=== PATIENT | female | born 1990 | race Caucasian/White ===

== ENCOUNTER 2019-11-12 00:58 | Inpatient (IN) ==
[2019-11-12] MEDS ORDERED: MEPERIDINE 50 MG/1 ML VIAL IM PRN (02:02)
[2019-11-12] MEDS ORDERED: BUTORPHANOL 2 MG/ML VIAL IV PRN (02:02)
[2019-11-12] MEDS ORDERED: BUTORPHANOL 1 MG/ML VIAL IV PRN (02:02)
[2019-11-12 02:31] LABS: Basophils % 0.2 % (0.0-0.8); Eosinophils # 0.1 10*3/uL (0.0-0.87); Eosinophils % 0.8 % (0.00-10.9); Hematocrit 33.7 VOL% (35.7-47.0); Hemoglobin 11.2 GM/DL (12.0-16.0); Immature Granulocytes % 0.4 %; Immature Granulocytes Absolute 0.05 #; Lymphocytes # 2.2 10*3/uL (1.4-4.0); Mean Corpuscular HGB Conc 33.2 GM/DL (32-36); Mean Corpuscular Volume 87.1 FL (87-102); Mean Platelet Volume 10.6 FL (9.6-12.0); Monocytes % 4.9 % (1.7-12.7); Neutrophils % 75.7 % (38.7-73.9); Platelet Count 294 T/CUMM (130-400); Red Blood Count 3.87 MC/CUMM (3.8-5.5); Red Cell Distribution Width 13.8 % (9.3-17.3)
[2019-11-12] MEDS: LACTATED RINGERS 1,000 ML IV SCH ×3 (02:41→14:51)
[2019-11-12] MEDS ORDERED: AMPICILLIN INJ 2,000 MG in SODIUM CHLORIDE 0.9% 100 ML IV ONE (03:00)
[2019-11-12] MEDS: ONDANSETRON 4 MG/2 ML VIAL IV PRN ×2 (03:22→10:39)
[2019-11-12] MEDS ORDERED: OXYTOCIN/LR 20 UNIT/1,000 ML BAG IV SCH (07:30)
[2019-11-12] MEDS ORDERED: CITRIC ACID/SODIUM CITRATE 30 ML UDCUP PO ONE (07:41)
[2019-11-12] MEDS ORDERED: FAMOTIDINE 20 MG/2 ML VIAL IV ONE (07:41)
[2019-11-12] MEDS ORDERED: hydrOXYzine HCL 25 MG/1 ML VIAL IM PRN (07:41)
[2019-11-12] MEDS ORDERED: PROMETHAZINE 25 MG/1 ML VIAL IM PRN (07:41)
[2019-11-12] MEDS ORDERED: diphenhydrAMINE 50 MG/1 ML VIAL IV PRN (07:41)
[2019-11-12] MEDS ORDERED: ePHEDrine 50 MG/ML VIAL IV PRN (07:41)
[2019-11-12] MEDS ORDERED: NALOXONE 0.4 MG/ML VIAL IV PRN (07:41)
[2019-11-12] MEDS: AMPICILLIN INJ 1,000 MG in SODIUM CHLORIDE 0.9% 100 ML IV SCH ×3 (07:51→15:13)
[2019-11-12] MEDS ORDERED: fentaNYL 2 MCG/ROPIV 0.2% EPID 100 ML EPIDURAL SCH (08:00)
[2019-11-12] MEDS ORDERED: LABETALOL 200 MG TABLET ONE (09:07)
[2019-11-12] MEDS: LABETALOL 200 MG TABLET PO SCH ×2 (09:11→16:57)
[2019-11-12 10:35] LABS: Apearance,Urine CLEAR (Clear); Bilirubin,Urine Negative (Negative); Blood, Urine Negative (Negative); Glucose,Urine (UA) Negative (Negative); Ketones,Urine 5 mg/dL (Negative); Mucus,Urine Occasional /LPF (Occasional); Nitrite,Urine Negative (Negative); Protein,Urine Negative; RBC,Urine 2 /HPF (0-4); Squamous Epithelial Cell,Urine Occasional /HPF (0-10); Urine Color Yellow (Yellow); Urine Specific Gravity 1.017 (1.001-1.035); Urine Urobilinogen < 2.0 EU/DL (0.2-1.0); WBC,Urine <1 /HPF (0-6)
[2019-11-12] MEDS ORDERED: TRANEXAMIC ACID 1,000 MG/10 ML VIAL ONE (15:29)
[2019-11-12] MEDS ORDERED: METHYLERGONOVINE 0.2 MG/1 ML AMP ONE (15:29)
[2019-11-12] MEDS ORDERED: miSOPROStoL 200 MCG TABLET ONE (15:29)
[2019-11-12] MEDS ORDERED: OXYTOCIN/LR 20 UNIT/1,000 ML BAG IV ONE ×2 (15:29→20:24)
[2019-11-12] MEDS ORDERED: CARBOPROST TROMETHAMINE 250 MCG/ML AMP IM ONE (15:30)
[2019-11-12] MEDS ORDERED: LIDOCAINE 1% 50 ML VIAL ONE (17:52)
[2019-11-12] MEDS ORDERED: ceFAZolin 2,000 MG in PREMIX 1 EACH IV ONE (18:42)
[2019-11-12] MEDS ORDERED: LIDOCAINE MPF 2% /EPI 20 ML VIAL ONE (18:48)
[2019-11-12 19:27] LABS: Cord Arterial Blood HCO3 23.5 MMOL/L; Cord Venous Blood HCO3 22.5 MMOL/L; Cord Venous Blood PCO2 44.5 MMHG; Cord Venous Blood PO2 29.9
[2019-11-12] MEDS ORDERED: OXYTOCIN 10 UNIT/ML VIAL ONE (19:32)
[2019-11-12] MEDS ORDERED: MEASLES/MUMPS/RUBELLA VACCINE 0.5 ML VIAL SUBCUT ONE (20:24)
[2019-11-12] MEDS ORDERED: RHO(D) IMMUNE GLOBULIN 300 MCG SYRINGE IM ONE (20:24)
[2019-11-12] MEDS ORDERED: BISACODYL 10 MG SUPP RECTAL PRN (20:24)
[2019-11-12] MEDS ORDERED: BENZOCAINE 20%/MENTHOL 0.5% SPRAY 56 GM CAN TOP PRN (20:24)
[2019-11-12] MEDS ORDERED: WITCH HAZEL PADS 100/JAR TOP PRN (20:24)
[2019-11-12] MEDS ORDERED: ACETAMINOPHEN 325 MG TABLET PO PRN (20:24)
[2019-11-12] MEDS ORDERED: HYDROCORTISONE 2.5% RECTAL CREAM 30 GM TUBE TOP PRN (20:24)
[2019-11-12] MEDS ORDERED: DIPH/TET/ACEL PERT BOOSTER VACCINE 0.5 ML VIAL IM ONE (20:24)
[2019-11-12] MEDS ORDERED: ONDANSETRON 4 MG/2 ML VIAL IV PRN (20:24)
[2019-11-12] MEDS ORDERED: oxyCODONE/ACETAMINOPHEN 5-325 MG TABLET PO PRN (20:24)
[2019-11-12] MEDS ORDERED: LANOLIN 50% CREAM 0.3 OZ TUBE TOP PRN (20:24)
[2019-11-12] MEDS ORDERED: PHENYLEPHRINE 1 MG/10 ML SYRINGE IV ONE (20:33)
[2019-11-12] MEDS ORDERED: MIDAZOLAM 2 MG/2 ML VIAL ONE (20:34)
[2019-11-12] MEDS ORDERED: propofoL 200 MG/20 ML VIAL IV ONE (20:34)
[2019-11-12] MEDS ORDERED: LIDOCAINE 2% 5 ML VIAL ONE (20:34)
[2019-11-12] MEDS ORDERED: MORPHINE 10 MG/10 ML VIAL ONE (20:34)
[2019-11-12] MEDS ORDERED: HYDROmorphone 2 MG/1 ML VIAL IV ONE ×2 (22:55)
[2019-11-12] MEDS: ACETAMINOPHEN 500 MG TABLET PO PRN (23:35)
[2019-11-12] MEDS: KETOROLAC 30 MG/1 ML VIAL IV SCH (23:35)
[2019-11-13] MEDS: LABETALOL 200 MG TABLET PO SCH ×3 (00:36→19:05)
[2019-11-13] MEDS: ceFAZolin 1,000 MG in SYRINGE 1 EACH IV SCH ×2 (04:00→11:30)
[2019-11-13] MEDS: ACETAMINOPHEN 500 MG TABLET PO PRN (05:29)
[2019-11-13] MEDS: KETOROLAC 30 MG/1 ML VIAL IV SCH ×2 (05:29→11:20)
[2019-11-13 06:35] LABS: Basophils % 0.3 % (0.0-0.8); Eosinophils # 0.1 10*3/uL (0.0-0.87); Eosinophils % 0.4 % (0.00-10.9); Hematocrit 26.1 VOL% (35.7-47.0); Immature Granulocytes % 0.5 %; Immature Granulocytes Absolute 0.08 #; Lymphocytes # 2.8 10*3/uL (1.4-4.0); Lymphocytes % 17.7 % (21.3-54.2); Mean Corpuscular HGB Conc 32.6 GM/DL (32-36); Mean Corpuscular Volume 90.3 FL (87-102); Mean Platelet Volume 11.1 FL (9.6-12.0); Monocytes % 5.3 % (1.7-12.7); Neutrophils % 75.8 % (38.7-73.9); Platelet Count 268 T/CUMM (130-400); Red Cell Distribution Width 14.3 % (9.3-17.3); White Blood Count 15.6 T/CUMM (4-12)
[2019-11-13 06:38] LABS: Hemoglobin 8.5 GM/DL (12.0-16.0); Red Blood Count 2.89 MC/CUMM (3.8-5.5)
[2019-11-13] MEDS: FLUoxetine 20 MG CAPSULE PO SCH (08:55)
[2019-11-13] MEDS: DOCUSATE SODIUM 100 MG CAPSULE PO SCH ×2 (08:55→20:52)
[2019-11-13] MEDS: IBUPROFEN 800 MG TABLET PO PRN (19:01)
[2019-11-13] MEDS: oxyCODONE/ACETAMINOPHEN 5-325 MG TABLET PO PRN (23:38)
[2019-11-14] MEDS: LABETALOL 200 MG TABLET PO SCH ×3 (03:00→17:27)
[2019-11-14] MEDS: IBUPROFEN 800 MG TABLET PO PRN ×3 (06:16→17:31)
[2019-11-14] MEDS: oxyCODONE/ACETAMINOPHEN 5-325 MG TABLET PO PRN (06:16)
[2019-11-14] MEDS: FLUoxetine 20 MG CAPSULE PO SCH (10:15)
[2019-11-14] MEDS: DOCUSATE SODIUM 100 MG CAPSULE PO SCH ×2 (10:15→21:14)
[2019-11-14] MEDS: MAGNESIUM HYDROXIDE SUSP 30 ML UDCUP PO PRN (12:45)
[2019-11-15] MEDS: oxyCODONE/ACETAMINOPHEN 5-325 MG TABLET PO PRN (00:01)
[2019-11-15] MEDS: LABETALOL 200 MG TABLET PO SCH (01:55)
[2019-11-15] MEDS: MAGNESIUM HYDROXIDE SUSP 30 ML UDCUP PO PRN (01:55)
[2019-11-15] MEDS ORDERED: FUROSEMIDE 40 MG TABLET PO ONE (08:11)
[2019-11-15] MEDS: DOCUSATE SODIUM 100 MG CAPSULE PO SCH (08:35)
[2019-11-15] MEDS: FLUoxetine 20 MG CAPSULE PO SCH (08:36)
[2019-11-15 10:03] VITALS: BP 105/68
== END 2019-11-15 11:50 | disposition home or self-care (01) | DRG 788 ==
LOC: N.LDOUT 00:58 → N.LD 01:01 → N.OB 11-13 01:10
PROVIDERS: ADMIT Specialist; ATTEND Specialist
PROC: LDCSECT (ICD-10-PCS; 2019-11-12 18:30)

== ENCOUNTER 2022-05-03 23:03 | Inpatient (IN) ==
[2022-05-04] MEDS ORDERED: METHYLERGONOVINE 0.2 MG/1 ML AMP IM PRN ×2 (00:15→06:05)
[2022-05-04] MEDS ORDERED: LACTATED RINGERS 500 ML IV PRN (00:15)
[2022-05-04] MEDS ORDERED: ONDANSETRON 4 MG/2 ML VIAL IV PRN ×2 (00:15→11:59)
[2022-05-04] MEDS ORDERED: miSOPROStoL 200 MCG TABLET RECTAL PRN ×2 (00:15→06:05)
[2022-05-04] MEDS ORDERED: LACTATED RINGERS 250 ML IV ONE (00:15)
[2022-05-04] MEDS ORDERED: TRANEXAMIC ACID 1,000 MG in SODIUM CHLORIDE 0.9% 100 ML IV PRN ×2 (00:15→06:05)
[2022-05-04] MEDS ORDERED: OXYTOCIN/LR 20 UNIT/1,000 ML BAG IV ONE ×5 (00:15→11:59)
[2022-05-04] MEDS ORDERED: CARBOPROST TROMETHAMINE 250 MCG/ML AMP IM PRN ×2 (00:15→06:05)
[2022-05-04] MEDS ORDERED: LACTATED RINGERS 1,000 ML IV SCH ×2 (00:30→06:30)
[2022-05-04 01:18] LABS: Basophils % 0.2 % (0.0-0.8); Eosinophils # 0.1 10*3/uL (0.0-0.87); Hematocrit 33.7 VOL% (35.7-47.0); Hemoglobin 11.1 GM/DL (12.0-16.0); Immature Granulocytes % 0.3 %; Immature Granulocytes Absolute 0.04 #; Lymphocytes # 2.5 10*3/uL (1.4-4.0); Lymphocytes % 19.9 % (21.3-54.2); Mean Corpuscular HGB Conc 32.9 GM/DL (32-36); Mean Corpuscular Volume 87.8 FL (87-102); Mean Platelet Volume 10.3 FL (9.6-12.0); Monocytes # 0.7 10*3/uL (0.11-0.8); Monocytes % 5.5 % (1.7-12.7); Neutrophils % 73.1 % (38.7-73.9); Platelet Count 312 T/CUMM (130-400); Red Blood Count 3.84 MC/CUMM (3.8-5.5); Red Cell Distribution Width 13.4 % (9.3-17.3); White Blood Count 12.5 T/CUMM (4-12)
[2022-05-04] MEDS: LABETALOL 200 MG TABLET PO SCH (02:17)
[2022-05-04] MEDS ORDERED: MEPERIDINE 25 MG/1 ML VIAL IV ONE (02:30)
[2022-05-04] MEDS ORDERED: ceFAZolin 2,000 MG/50 ML DUPLEX IV ONE (06:05)
[2022-05-04] MEDS ORDERED: CITRIC ACID/SODIUM CITRATE 30 ML UDCUP PO ONE (06:05)
[2022-05-04] MEDS ORDERED: FAMOTIDINE 20 MG/2 ML VIAL IV ONE (06:05)
[2022-05-04] MEDS ORDERED: TRANEXAMIC ACID 1,000 MG/10 ML VIAL ONE (06:37)
[2022-05-04] MEDS ORDERED: miSOPROStoL 200 MCG TABLET ONE (06:37)
[2022-05-04] MEDS ORDERED: CARBOPROST TROMETHAMINE 250 MCG/ML AMP IM ONE (06:38)
[2022-05-04] MEDS ORDERED: METHYLERGONOVINE 0.2 MG/1 ML AMP ONE (06:38)
[2022-05-04] MEDS ORDERED: SODIUM CHLORIDE 0.9% 0 ML IV ONE (06:38)
[2022-05-04] MEDS ORDERED: ONDANSETRON 4 MG/2 ML VIAL ONE (06:56)
[2022-05-04] MEDS ORDERED: buprenorphine HCL 0.3 MG/ML VIAL ONE (06:56)
[2022-05-04] MEDS ORDERED: PHENYLEPHRINE 1 MG/10 ML SYRINGE IV ONE ×2 (07:30→08:30)
[2022-05-04] MEDS ORDERED: MIDAZOLAM 2 MG/2 ML VIAL ONE (07:47)
[2022-05-04 08:01] LABS: Cord Arterial Blood HCO3 22.4 MMOL/L
[2022-05-04] MEDS ORDERED: KETOROLAC 30 MG/1 ML VIAL ONE (08:01)
[2022-05-04] MEDS ORDERED: DEXAMETHASONE 4 MG/1 ML VIAL ONE (08:01)
[2022-05-04] MEDS ORDERED: ACETAMINOPHEN INJ 1,000 MG/100 ML VIAL IV ONE (08:01)
[2022-05-04 08:04] LABS: Cord Venous Blood HCO3 23.7 MMOL/L; Cord Venous Blood PCO2 49.8 MMHG
[2022-05-04] MEDS ORDERED: LACTATED RINGERS 1,000 ML IV ONE (08:10)
[2022-05-04] MEDS ORDERED: BENZOCAINE 20%/MENTHOL 0.5% SPRAY 56 GM CAN TOP PRN (11:59)
[2022-05-04] MEDS ORDERED: LANOLIN 50% CREAM 0.3 OZ TUBE TOP PRN (11:59)
[2022-05-04] MEDS ORDERED: WITCH HAZEL PADS 100/JAR TOP PRN (11:59)
[2022-05-04] MEDS ORDERED: BISACODYL 10 MG SUPP RECTAL PRN (11:59)
[2022-05-04] MEDS ORDERED: ACETAMINOPHEN 325 MG TABLET PO PRN (11:59)
[2022-05-04] MEDS ORDERED: HYDROCORTISONE 2.5% RECTAL CREAM 30 GM TUBE TOP PRN (11:59)
[2022-05-04] MEDS ORDERED: oxyCODONE/ACETAMINOPHEN 5-325 MG TABLET PO PRN (11:59)
[2022-05-04] MEDS ORDERED: RHO(D) IMMUNE GLOBULIN 300 MCG SYRINGE IM ONE (11:59)
[2022-05-04] MEDS ORDERED: DIPH/TET/ACEL PERT BOOSTER VACCINE 0.5 ML VIAL IM ONE (11:59)
[2022-05-04] MEDS ORDERED: MEASLES/MUMPS/RUBELLA VACCINE 0.5 ML VIAL SUBCUT ONE (11:59)
[2022-05-04] MEDS: ACETAMINOPHEN 500 MG TABLET PO SCH ×2 (13:56→20:31)
[2022-05-04] MEDS: KETOROLAC 30 MG/1 ML VIAL IV SCH ×2 (13:57→20:29)
[2022-05-04] MEDS: DOCUSATE SODIUM 100 MG CAPSULE PO SCH (20:31)
[2022-05-04 20:50] LABS: Bacteria,Urine Occasional /HPF (Few); Mucus,Urine Occasional /LPF (Occasional); RBC,Urine 4 /HPF (0-4)
[2022-05-04 20:53] LABS: Bilirubin,Urine Negative (Negative); Blood, Urine Trace mg/dL (Negative); Glucose,Urine (UA) Negative (Negative); Ketones,Urine Negative (Negative); Nitrite,Urine Negative (Negative); Protein,Urine Negative (Negative); Urine Appearance Clear (Clear); Urine Color Yellow (Yellow); Urine Specific Gravity >= 1.030 (1.001-1.035); Urine Urobilinogen 0.2 eU/dL (<2.0)
[2022-05-05] MEDS: KETOROLAC 30 MG/1 ML VIAL IV SCH (02:31)
[2022-05-05] MEDS: ACETAMINOPHEN 500 MG TABLET PO SCH (02:32)
[2022-05-05] MEDS: LABETALOL 200 MG TABLET PO SCH (04:35)
[2022-05-05 06:09] LABS: Basophils % 0.2 % (0.0-0.8); Eosinophils % 0.3 % (0.00-10.9); Hematocrit 29.6 VOL% (35.7-47.0); Hemoglobin 9.6 GM/DL (12.0-16.0); Immature Granulocytes % 0.5 %; Immature Granulocytes Absolute 0.06 #; Lymphocytes # 2.7 10*3/uL (1.4-4.0); Lymphocytes % 21.7 % (21.3-54.2); Mean Corpuscular HGB Conc 32.4 GM/DL (32-36); Monocytes # 0.7 10*3/uL (0.11-0.8); Monocytes % 5.3 % (1.7-12.7); Platelet Count 250 T/CUMM (130-400); Red Blood Count 3.29 MC/CUMM (3.8-5.5); Red Cell Distribution Width 13.5 % (9.3-17.3); White Blood Count 12.5 T/CUMM (4-12)
[2022-05-05] MEDS: DOCUSATE SODIUM 100 MG CAPSULE PO SCH ×2 (09:30→21:09)
[2022-05-05] MEDS: MAGNESIUM HYDROXIDE SUSP 30 ML UDCUP PO PRN (09:30)
[2022-05-05] MEDS: SIMETHICONE CHEW 80 MG TABLET PO PRN (09:34)
[2022-05-05] MEDS: FLUoxetine 20 MG CAPSULE PO SCH (09:36)
[2022-05-05] MEDS: oxyCODONE/ACETAMINOPHEN 5-325 MG TABLET PO PRN ×2 (09:37→21:10)
[2022-05-05] MEDS: IBUPROFEN 800 MG TABLET PO PRN (13:15)
[2022-05-06] MEDS: MAGNESIUM HYDROXIDE SUSP 30 ML UDCUP PO PRN (04:45)
[2022-05-06] MEDS: IBUPROFEN 800 MG TABLET PO PRN (04:49)
[2022-05-06] MEDS: LABETALOL 200 MG TABLET PO SCH ×2 (05:18→07:56)
[2022-05-06] MEDS: DOCUSATE SODIUM 100 MG CAPSULE PO SCH (08:46)
[2022-05-06] MEDS: SIMETHICONE CHEW 80 MG TABLET PO PRN (08:46)
[2022-05-06] MEDS: FLUoxetine 20 MG CAPSULE PO SCH (08:46)
[2022-05-06 16:12] VITALS: BP 144/65
== END 2022-05-06 17:00 | disposition home or self-care (01) | DRG 786 ==
LOC: N.LDOUT 23:03 → N.LD 23:05 → N.OB 05-04 12:10
PROVIDERS: ADMIT Specialist; ATTEND Specialist
PROC: LDCSECT (ICD-10-PCS; 2022-05-04 07:30)